=== PATIENT | male | born 1980 | race Caucasian/White ===

== ENCOUNTER 2018-07-02 10:41 | Day surgery (SDC) | payer OTHER ==
[2018-07-02] MEDS ORDERED: LR 1,000 ML IV ONE (11:06)
[2018-07-02] MEDS ORDERED: ceFAZolin 2 GM/DEXTROSE 100 ML IV ONE (12:06)
--- NOTE | 2018-07-02 12:06 | PDHPUP ---
History & Physical Update H&P update statement: This history and physical update is based on an assessment of the patient which was completed after admission or registration (within 24 hours), but prior to the surgery/procedure. H&P update: H&P reviewed & patient examined (no changes ), no change in patient' s condition since H&P completed H&P changes: no changes since preop visit
[2018-07-02] MEDS ORDERED: ROPIVACAINE HCL 150 MG/30 ML INJ ONE (12:24)
[2018-07-02] MEDS ORDERED: LIDOCAINE 1% 300 MG/30 ML SDV ONE (12:24)
[2018-07-02] MEDS ORDERED: BUPIVACAINE 0.5% 30 ML SDV ONE ×2 (12:25→15:09)
[2018-07-02] MEDS ORDERED: BACITRACIN 50,000 UNITS/10 ML SYR IRR ONE (12:25)
[2018-07-02] MEDS ORDERED: LIDOCAINE 2% 5 ML SDV ONE (12:25)
--- NOTE | 2018-07-02 12:37 | PDANEPAE ---
ANE Past Medical History - Cardiovascular History Hx Hypertension: No Hx Arrhythmias: No Hx Chest Pain: No Hx Coronary Artery / Peripheral Vascular Disease: No Hx CHF / Valvular Disease: No Hx Palpitations: No Cardiovascular History Comment: high chol - Pulmonary History Hx COPD: No Hx Asthma/Reactive Airway Disease: No Hx Recent Upper Respiratory Infection: No Hx Oxygen in Use at Home: No Hx Sleep Apnea: No Sleep Apnea Screening Result - Last Documented: Negative - Neurologic History Hx Cerebrovascular Accident: No Hx Seizures: No Hx Dementia: No - Endocrine History Hx Diabetes: No - Renal History Hx Renal Disorders: No - Liver History Hx Hepatic Disorders: No - Neurological & Psychiatric Hx Hx Neurological and Psychiatric Disorders: No - Cancer History Hx Cancer: No - Congenital Disorder History Hx Congenital Disorders: No - GI History Hx Gastrointestinal Disorders: Yes Gastrointestinal History Comment: hx of reflux - Other Health History Other Health History: none - Chronic Pain History Chronic Pain: No - Surgical History Prior Surgeries: eye surgeries x5 as child, last one being in 7th grade around 14 yo. wisdom teeth removed as teenager ANE Review of Systems Review of Systems: - Exercise capacity METS (RN): 4 METS ANE Patient History - Allergies Allergies/Adverse Reactions: Pertussis Vaccines Allergy (Verified 07/02/18 11:23) unknown - childhood - Home Medications Home Medications: Claritin-D 24 Hour Tablet 06/27/18 [Last Taken 07/01/18] Vitamin C 07/02/18 [Last Taken 07/02/18 05:30] Zinc 07/02/18 [Last Taken 07/02/18 05:30] - NPO status NPO Since - Liquids (Date): 07/02/18 NPO Since - Liquids (Time): 07:00 NPO Since - Solids (Date): 07/01/18 NPO Since - Solids (Time): 18:30 - Smoking Hx Smoking Status: Never smoked - Family Anes Hx Family Hx Anesthesia Complications: none ANE Labs/Vital Signs - Vital Signs Blood Pressure: 149/84 Heart Rate: 85 Respiratory Rate: 18 O2 Sat (%): 97 Height: 170.18 cm Weight: 72.575 kg ANE Physical Exam - Airway Neck exam: FROM Mallampati Score: Class 1 Mouth exam: normal dental/mouth exam - Pulmonary Pulmonary: no respiratory distress, no rales or rhonchi, clear to auscultation - Cardiovascular Cardiovascular: regular rate and rhythym, no murmur, rub, or gallop, pulses symmetric bilaterally - ASA Status ASA Status: I ANE Anesthesia Plan Anesthesia Plan: MAC
[2018-07-02] MEDS ORDERED: MIDAZOLAM 2 MG/2 ML VIAL ONE (12:38)
[2018-07-02] MEDS ORDERED: fentaNYL 100 MCG/2 ML INJ ONE (12:38)
[2018-07-02] MEDS ORDERED: PROPOFOL/EMULSION 500 MG/50 ML BOTTLE IV ONE (12:39)
[2018-07-02] MEDS ORDERED: PROMETHAZINE HCL 25 MG/ML INJ IVP PRN (12:52)
[2018-07-02] MEDS ORDERED: LR 500 ML IV PRN (12:52)
[2018-07-02] MEDS ORDERED: NALOXONE HCL 0.4 MG/ML INJ IVP PRN (12:52)
[2018-07-02] MEDS ORDERED: MEPERIDINE 25 MG/0.5 ML AMP IVP PRN (12:52)
[2018-07-02] MEDS ORDERED: fentaNYL 100 MCG/2 ML INJ IVP PRN (12:52)
[2018-07-02] MEDS ORDERED: oxyCODONE IR 5 MG TAB PO PRN (12:52)
[2018-07-02] MEDS ORDERED: ONDANSETRON 4 MG/2 ML VIAL IVP PRN (12:52)
[2018-07-02] MEDS ORDERED: HYDROCODONE/APAP 5/325 TAB PO PRN (12:52)
[2018-07-02] MEDS ORDERED: DEXAMETHASONE 4 MG/ML VIAL IVP PRN (12:52)
[2018-07-02] MEDS ORDERED: ALBUTEROL 3 ML DEYVIAL IH PRN (12:52)
[2018-07-02] MEDS ORDERED: ACETAMINOPHEN 500 MG TAB PO PRN (12:52)
[2018-07-02] MEDS ORDERED: PROPOFOL 200 MG/20 ML VIAL ONE ×2 (13:43→14:27)
[2018-07-02] MEDS: DEXAMETHASONE 4 MG/ML VIAL ONE ×2 (13:58→14:00)
[2018-07-02] MEDS ORDERED: POVIDONE-IODINE 30 GM OINTTUBE TP ONE (14:37)
[2018-07-02] MEDS ORDERED: ROPIVACAINE HCL 150 MG/30 ML INJ MISC ONE (15:00)
--- NOTE | 2018-07-02 15:02 | POSTOPPROG ---
Post Op Note Date of Operation: 07/02/18 Surgeon: Olga Rebolledo Service Observer: han Rebolledo Anesthesiologist: Dr. Adams and Dr. Moran. Pre-op Diagnosis: Contracture MTPJ 4,5 , hammertoes 4,5 R Post-op Diagnosis: same Indication: deformity, pain Procedure: HT repair:4thfusion,5 [id number] FDL transfer.MTPJrel.rotatskinplasty Findings: rigid contracture 4,5th digits, ext contract, skincontracture Inf/Abcess present in the surg proc area at time of surgery?: No Depth: Deep Incisional (Fascial) EBL: Minimal Complications: none Specimen(s): none
[2018-07-02] MEDS ORDERED: KETOROLAC 30 MG/1 ML SDV IVP ONE (15:09)
[2018-07-02] MEDS ORDERED: KETOROLAC 30 MG/1 ML SDV ONE (15:26)
[2018-07-02 15:53] VITALS: BP 111/78
--- NOTE | 2018-07-02 16:10 | POSTANESTH ---
Post Anesthetic Evaluation Cardiovascular Status: Normal, Stable Respiratory Status: Normal, Stable Level of Consciousness/Mental Status: Can Participate in Eval Pain Control: Adequate, Prn Tx Ordered Nausea/Vomiting Control: Adequate, Prn Tx Ordered Complications Possibly Related to Anesthesia: None Noted
--- NOTE | 2018-07-03 04:02 | GOP ---
DATE OF OPERATION: 07/02/2018 SURGEON: Olga Rebolledo DPM POST HOLE DIGGING MACHINE OPERATOR: Dorothy Rebolledo DPM. ANESTHESIA: MAC/light general. ANESTHESIOLOGIST: Neelima Meraz MD. Followup with Dr. Philipp Jovel. PREOPERATIVE DIAGNOSIS: 1. Hammertoe deformity, 4th digit, right foot. 2. Contracture, 4th metatarsophalangeal joint, right foot. 3. Hammertoe deformity, 5th digit, right foot. 4. Contracture, metatarsophalangeal joint, 5th, right foot. 5. Dorsal skin contracture tension, 5th digit, right foot. POSTOPERATIVE DIAGNOSIS: 1. Hammertoe deformity, 4th digit, right foot. 2. Contracture, 4th metatarsophalangeal joint, right foot. 3. Hammertoe deformity, 5th digit, right foot. 4. Contracture, metatarsophalangeal joint, 5th, right foot. 5. Dorsal skin contracture tension, 5th digit, right foot. PROCEDURE PERFORMED: 1. Hammertoe repair,4th digit, involving fusion of the proximal interphalangeal joint using an OsteoMed screw. 2. Capsulotomy, 4th metatarsophalangeal joint, right foot. 3. Extensor tendon release, 4th digit with transfer to the dorsal aspect of the 4th metatarsal head with pin fixation, right foot. 4. Hammertoe repair, 5th digit arthroplasty with pin fixation, right foot. 5. Capsulotomy, 5th metatarsophalangeal joint, right foot. 6. Extensor tenotomy with transfer to the 5th metatarsal head. 7. Flexor tendon transfer 5th digit with pin fixation 8. Asymmetrical Z-plasty with 2 rotational transpositional skin flaps with repair at the base of the 5th digit. FINDINGS: 1.5th digit with dorsal contracture at the 5th metatarsophalangeal joint, difficult to reduce, skin is tight and tense, extensor tendon tight. Digit does not purchase the ground. Rigid contracture at the level of the proximal interphalangeal joint, non-reducible. 2. 4th digit with rigid contracture, dorsal contracture at the metatarsophalangeal joint, semi rigid contracture at the proximal interphalangeal joint. The digit does not fully purchase the ground but has a little bit more reducibility. INDICATIONS: Significant pain and deformity times years, difficult time finding any shoes that fit comfortably. Secondary hip pain and compensation in gait due to pain, limitation with activities. The patient's primary activities are Alpine skiing and rock climbing, and activities are limited due to foot deformity and pain. The patient has pain on a daily basis and at this time elects to proceed with surgery. He has exhausted conservative treatment efforts which have included trying multiple pairs of shoes, padding, taping and stretching. At this time, he elects to proceed with surgery. DESCRIPTION OF PROCEDURES: Patient was brought into the operating room, placed on the operating table in the supine position. Intravenous sedation administered by the anesthesiologist. A posterior tibial and peripheral nerve block was obtained utilizing a total of 10 cc of 1% lidocaine plain and then as well, 5 cc of 0.5% Marcaine plain and 0.5 cc of 0.5% ropivacaine plain. The lower extremity was prepped and draped in usual sterile manner after the limb was elevated, exsanguinated with an Esmarch bandage and ankle tourniquet was inflated to 225 mmHg and the procedure was begun. Stockinette was placed under the ankle cuff. 1. Hammertoe repair involving fusing the proximal interphalangeal joint; attention was directed towards the dorsal aspect of the 4th digit where a linear incision was created. Incision was carefully deepened with care of neurovascular structures and clamp and cauterize all bleeders. An extensor transverse capsulotomy tenotomy performed at the proximal interphalangeal joint. Utilizing the sagittal saw, the cartilage was resected off the head of the proximal phalanx and base of the middle phalanx. After release of the extensor tendon, it was noted the digit was more easily reduced and it was decided a proximal skin plasty was not necessary. 2. Capsulotomy, 4th metatarsophalangeal joint; the incision was extended proximally by approximately 1.5 cm to allow for exposure to the sling wing mechanism which was sharply released. 4th digit sat in a more relaxed position. However, there was still some tension dorsally at the metatarsophalangeal joint and so it was decided to proceed with a capsulotomy which was performed with a 64 blade, releasing tension. At this time the digit sat in a much straighter position and was more relaxed. It was decided that the flexor tendon transfer was not needed. To complete the hammertoe correction, cartilage had been resected off the base of the middle phalanx in preparation for fusion. Utilizing OsteoMed K-wire, was driven through the middle distal phalanx and retrograded to the proximal phalanx and then it was determined that a size 2.0 OsteoMed headless screw measuring 30 mm in length fit best and this was placed from the distal end of the digit through a stab incision, through the digit creating stability and compression at the fusion site. With loading the forefoot satisfactory alignment was noted. C-arm pictures were taken to verify alignment and positioning. Fusion site flushed. 3. Extensor tenotomy; after the extensor tendon was released at the proximal interphalangeal joint and after the hammertoe repair, with loading of the forefoot, the extensor tendon sat at the level almost at the base of the proximal phalanx. Excessive tendon excised and remaining portion of the tendon was transferred to the dorsal aspect of the capsule on the 4th metatarsal head and secured with a 4-0 Ethibond suture and a 3-0 Ethibond single interrupted suture. Then utilizing power, the K-wire was driven proximally crossing the metatarsophalangeal joint to maintain stability of the 4th digit at the level of the metatarsophalangeal joint. C-arm pictures were taken confirming excellent alignment of the 4th digit and reduction of the deformity. 4. Procedure #8 was initiated - skin plasty procedure; an asymmetrical Z- incision was created along the dorsal aspect of the 5th metatarsophalangeal joint where tight skin contracture was noted. 5. Procedure #4 was initiated. Linear incision created extending from the Z plasty skin-incision dorsal to the proximal interphalangeal joint to address the hammertoe deformity, 5th digit. Incision was carefully deepened with care of neurovascular structures and clamped and cauterized bleeders. The dorsal capsulotomy and tenotomy performed, exposing the proximal interphalangeal joint. The head of the proximal phalanx was resected with the sagittal saw and removed from the wound. The wounds were copiously irrigated throughout the procedure with bacitracin irrigation solution. 6. Incision, dorsal base of the 5th digit was carefully deepened with care of neurovascular structures and that was through the Z-plasty procedure. Care was taken to keep flaps full thickness. Extensor sling wing mechanism was released, exposing the 5th metatarsophalangeal joint that was noted to have a tight contracture and therefore, capsulotomy performed with a 64 blade along the 5th digit to sit in a more relaxed position. However, it was still noted to be quite tight and needed to be further reduced, and so therefore, it was decided to proceed with the flexor tendon transfer procedure. 7. Flexor tendon transfer; attention was directed to the proximal interphalangeal joint where incision was deepened to the base of the middle phalanx where the short flexor tendon was incised longitudinally and the flexor digitorum longus tendon was pulled through and then clamped with a hemostat and then incised at its most distal aspect. It was then incised centrally and hooded over the proximal phalanx and then with the 5th digit loaded in corrected position, it was secured with a 2-0 Ethibond suture. Alignment noted to be excellent, digit deformity reduced. Fixation of the flexor digitorum longus transfer was then maintained with a K-wire, which was driven through the middle and distal phalanx and then retrograded through the proximal phalanx and through the metatarsophalangeal joint. 8. The extensor tendon after all the corrections was noted to be quite short, at the base of the proximal phalanx level, distal portion section was incised and then transferred to the dorsal aspect of the 5th metatarsal head and secured with a 2-0 Vicryl suture. This was to maintain pull of the tendon and avoid transfer pull to other EDL tendons. C-arm pictures verifying alignment and positioning of the 5th digit which was noted to be excellent. 9. Rotational skin flap; the full-thickness flaps were then transposed. The Z- section was brought over more medially and distally, and then the lateral arm was brought over proximal and medially and now the arms lay parallel to the old and on opposite sides of the new central arm. First sutures were placed in the mid section of the central arm after the full skin flap were transposed, other sutures were placed at the base of the flaps to hold the position and relieve tension at the apex, then a corner stitch which was partially buried in a horizontal mattress suture fashion at the corner to maintain alignment. With final closure, excellent correction of the digit and skin obtained. When the ankle tourniquet was released, a normal hyperemic response was noted to all digits and there was no avascularity noted of either the flaps or digits. Skin color pink. Dressings included Steri-Strips, Xeroform, 4x4s, fluffs, Diana, reinforced with tape and Webril, tape, and an Jasmeet bandage. Patient tolerated the procedure and anesthesia well and left the operating room with vital signs stable and vascular status intact to all digits. There were no intraoperative complications. In postoperative recovery, the patient was doing very well. He was not in any pain. No specimen sent to pathology. An additional 5 cc of 0.5 % ropivacaine injected as well as an additional 0.8 cc of 0.5% Marcaine plain to enhance postoperative anesthesia. The patient was fitted with a CryoCuff. His friend will be providing him with transportation home. He has a postoperative shoe at home, but will also be fitted with a postop shoe that he may use for driving as we discussed at the preoperative visit. He was given Toradol in the recovery room to help with postoperative inflammation and pain. He is to follow up in our office in 2 days for wound check. Prognosis good. /[id number]/MODL MTDD
== END 2018-07-02 16:25 | disposition home or self-care (01) ==
LOC: FSGY 10:41
PROVIDERS: ATTEND Podiatrist
PROC: 0L8V3ZZ Division of Right Foot Tendon, Percutaneous Approach (ICD-10-PCS; principal; 2018-07-02 12:30)
PROC: 0SGP04Z Fusion of Right Toe Phalangeal Joint with Internal Fixation Device, Open Approach (ICD-10-PCS; principal; 2018-07-02 12:30)
PROC: 0QBQ0ZZ Excision of Right Toe Phalanx, Open Approach (ICD-10-PCS; principal; 2018-07-02 12:30)
PROC: 0SNM0ZZ Release Right Metatarsal-Phalangeal Joint, Open Approach (ICD-10-PCS; principal; 2018-07-02 12:30)
DX: M20.41 Other hammer toe(s) (acquired), right foot (principal); M24.574 Contracture, right foot
CPT/HCPCS: 28285; 73630; C1769; C1713; J0690; J1100; J1885; J2250; J2704; J2795; J3010